=== PATIENT | male | born 1945 | race Caucasian/White ===

== ENCOUNTER 2022-03-04 12:25 | Outpatient (CLI) | payer MEDICARE, BC | END 2022-03-04 12:26 | disposition home or self-care (01) | LOC: CSHRAD 12:25 | PROVIDERS: ATTEND Internal Medicine Rheumatology | DX: M25.542 Pain in joints of left hand (principal); M25.571 Pain in right ankle and joints of right foot; M19.042 Primary osteoarthritis, left hand; M19.071 Primary osteoarthritis, right ankle and foot ==